=== PATIENT | female | born 1985 | race Caucasian/White ===

== ENCOUNTER 2018-07-02 13:50 | Emergency (ER) | payer SELFPAY ==
[~2018-07-02] VITALS: Ht 162.6 cm; Wt 56.2 kg
[2018-07-02 13:59] VITALS: BP 106/51; PULSE 79; RESP 18; Ht 162.6 cm; Wt 56.2 kg
== END 2018-07-02 19:45 | disposition left against medical advice (07) ==
LOC: FTE 13:50
DX: Z53.21 Procedure and treatment not carried out due to patient leaving prior to being seen by health care provider (principal)

== ENCOUNTER 2018-07-04 21:23 | Emergency (ER) | payer BC ==
[~2018-07-04] VITALS: Wt 57.1 kg
[2018-07-04] MEDS ORDERED: CEPH-443 PO (23:27)
[2018-07-04 23:36] VITALS: BP 110/70; PULSE 84; RESP 16
--- NOTE | 2018-07-05 22:05 | ERD ---
ER Documentation Chief Complaint Chief Complaint 8-10 WEEKS PG, C/O SHARP PELVIC PAIN HPI 32 yo female at approximately 8 weeks gestation who presents to the ED complaining of sudden onset sharp right pelvic pain since 7pm today. Pt was worried about her baby so she came here for further eval. She states pain radiates around her back. She endorses some urinary frequency and urgency. Denies any fevers, chills, nausea or vomiting. No vaginal bleeding. No vaginal discharge. States her last menstrual cycle was on 04/15/2018. Has not yet seen an [facility] but is currently waiting for her referral. ROS All systems reviewed and are negative except as per history of present illness. Medications Home Meds Active Scripts Cephalexin* (Keflex*) 500 Mg Capsule, 500 MG PO BID for 7 Days, CAP Prov:RAFAL BARTHOLOMEW PA-C 07/04/18 Allergies Allergies: Coded Allergies: vancomycin (Verified Allergy, Unknown, 07/04/18) PMhx/Soc History of Surgery: Yes (spinal ) Anesthesia Reaction: No Hx Neurological Disorder: No Hx Respiratory Disorders: Yes (asthma ) Hx Cardiac Disorders: No Hx Psychiatric Problems: No Hx Miscellaneous Medical Probl: Yes (scoliosis ) Hx Alcohol Use: No Hx Substance Use: No Hx Tobacco Use: No Smoking Status: Former smoker Physical Exam Vitals Vital Signs Date Temp Pulse Resp B/P (MAP) Pulse Ox O2 O2 Flow FiO2 Time Delivery Rate 07/04/18 98.0 84 16 110/70 98 Room Air 23:36 (83) 07/04/18 97.0 71 18 118/61 100 21:27 (80) Physical Exam Const: No acute distress Head: Atraumatic Eyes: Normal Conjunctiva ENT: Normal External Ears, Nose and Mouth. Neck: Full range of motion. No meningismus. Resp: Clear to auscultation bilaterally Cardio: Regular rate and rhythm, no murmurs Abd: Soft, + mild right pelvic TTP, non distended. No rebound, no guarding. Negative mcburney's, negative muphy's. Normal bowel sounds Skin: No petechiae or rashes Back: No midline or flank tenderness Ext: No cyanosis, or edema Neur: Awake and alert Psych: Normal Mood and Affect Result Diagram: 07/04/182200 Results 24 hrs Laboratory Tests Test 07/04/18 22:01 White Blood Count 6.3 10^3/ul Red Blood Count 4.18 10^6/ul Hemoglobin 12.2 g/dl Hematocrit 36.9 % Mean Corpuscular Volume 88.3 fl Mean Corpuscular Hemoglobin 29.2 pg Mean Corpuscular Hemoglobin Concent 33.1 g/dl Red Cell Distribution Width 12.6 % Platelet Count 230 10^3/UL Mean Platelet Volume 10.6 fl Immature Granulocytes % 0.300 % Neutrophils % 56.7 % Lymphocytes % 28.7 % Monocytes % 6.5 % Eosinophils % 7.5 % Basophils % 0.3 % Nucleated Red Blood Cells % 0.0 /100WBC Immature Granulocytes # 0.020 10^3/ul Neutrophils # 3.6 10^3/ul Lymphocytes # 1.8 10^3/ul Monocytes # 0.4 10^3/ul Eosinophils # 0.5 10^3/ul Basophils # 0.0 10^3/ul Nucleated Red Blood Cells # 0.0 10^3/ul Urine Color YELLOW Urine Clarity SLIGHTLY CLOUDY Urine pH 6.0 Urine Specific Taberg 1.018 Urine Ketones NEGATIVE mg/dL Urine Nitrite NEGATIVE mg/dL Urine Bilirubin NEGATIVE mg/dL Urine Urobilinogen NEGATIVE mg/dL Urine Leukocyte Esterase 1+ Diego/ul Urine Microscopic RBC 1 /HPF Urine Microscopic WBC 7 /HPF Urine Squamous Epithelial Cells FEW /HPF Urine Bacteria FEW /HPF Urine Hemoglobin NEGATIVE mg/dL Urine Glucose NEGATIVE mg/dL Urine Total Protein NEGATIVE mg/dl Beta HCG, Quantitative 906898.0 mIU/ml Procedures/MDM LABS CBC: no e/o of systemic infection or severe anemia Urine: 1+ leuk esterase with pyuria, consistent with mild cystitis serum HC. Blood type: B+ DIAGNOSTIC IMAGING: PROCEDURE: US OB. CLINICAL INDICATION: Vaginal bleeding. TECHNIQUE: Multiple sonographic images of the pelvis were obtained utilizing a transabdominally technique. The images were reviewed on a PACS workstation. COMPARISON: None FINDINGS: The uterus is visualized . The endometrial echo is thickened and there is an intrauterine gestational sac. A yolk sac and pole is noted and crown-rump length, measures 3.7 cm . This corresponds to a mean gestational age of 10 weeks and 3 days. cardiac activity measures 182 bpm. There is a 11.0 x 8.0 mm subchorionic hemorrhage. The right ovary measures 4.0 x 2.6 x 2.4 centimeters. The left ovary is not visualized. Positive flow is noted within right ovary. No evidence of free fluid or adnexal masses. IMPRESSION: 1. Single live intrauterine corresponding to a mean gestational age of 10 weeks and 3 days. cardiac activity measures 182 bpm. Estimated due date is January 27, 2019. 2. 11.0 x 8.0 mm subchorionic hemorrhage. 3. The left ovary is not visualized. Right ovary is unremarkable without e vidence of torsion. No gross adnexal masses. No evidence of free fluid. MEDICAL DECISION MAKIN yo female presents with pelvic pain in the first trimester. UA with evidence of mild cystitis, pt is symptomatic therefore will treat with PO abx, no evidence of pyelonephritis at this time. Remaining labs unremarkable. Her serum HCG was [id number]. US showed a single live IUP at 10 weeks gestation with small subchorionic hemorrhage. No findings suggesting ectopic . Discussed with pt regarding risk of threatened . Her vital signs are normal, she is otherwise hemodynamically stable. She was given a copy of her results and given referral to [facility] secretary and [facility] for repeat hcg and US in 48 hours. Strict return precautions given. PRESCRIPTIONS: Keflex SPECIALIST FOLLOW UP RECOMMENDED: None Patient has been advised to follow up with primary care in 1-2 days. Departure Diagnosis: Primary Impression: Pelvic pain complicating Trimester: first trimester Qualified Codes: O26.891 - Other specified related conditions, first trimester; R10.2 - Pelvic and perineal pain Additional Impression: UTI (urinary tract infection) Urinary tract infection type: acute cystitis Hematuria presence: without hematuria Qualified Codes: N30.00 - Acute cystitis without hematuria Condition: Stable Patient Instructions: Understanding Urinary Tract Infections (UTIs), Abdominal Pain, Early Referrals: [facility] [place] [address] [facility] [address] [place] [id number] OFFICE FAX QUINTON TOVAR [address] [place], [place] [id number] [facility] [id number] [place] [id number] [facility]ONICA, [facility] [address] [facility], [address], [place] [address] ANGEL MORALES [address] [facility], [place] [address] [facility] [address] [place] [address] [facility], [facility] [address] - [address] DESIR LENIN [address], [facility] [address] [address] FRANCO, [place] [address] [facility]. [address], [place] [address] [address] PINZON, [facility] [address] [place], [place] [phone] Additional Instructions: Call your primary care doctor TOMORROW for an appointment during the next 2-4 days and bring all the information and medications prescribed. If the symptoms get worse and your provider is unavailable, return to the Emergency Department immediately. RAFAL BARTHOLOMEW PA-C July 05, 2018 22:03
== END 2018-07-04 23:36 | disposition home or self-care (01) ==
LOC: FTE 21:23
DX: O26.891 Other specified pregnancy related conditions, first trimester (principal); O23.11 Infections of bladder in pregnancy, first trimester; O99.511 Diseases of the respiratory system complicating pregnancy, first trimester; R10.2 Pelvic and perineal pain; J45.909 Unspecified asthma, uncomplicated; Z3A.10 10 weeks gestation of pregnancy; Z87.891 Personal history of nicotine dependence
CPT/HCPCS: 36415; 76801; 81001; 84702; 85025; 86900; 86901; 87086